=== PATIENT | female | born 1955 | race Caucasian/White ===

== ENCOUNTER 2022-03-06 12:49 | Emergency (ER) | payer MEDICARE, BC, SELFPAY ==
[2022-03-06 13:06] VITALS: BP 109/69; PULSE 97; RESP 18; TEMP 37; O2SAT 92; BMI 42.3
[2022-03-06 14:11] LABS: PCR FLU A POSITIVE PCR FLU A (Negative); PCR FLU B Negative PCR FLU B (Negative); PCR RSV Negative PCR RSV (Negative); SARS PCR* Negative SARS-CoV-2 (Negative)
--- NOTE | 2022-03-06 14:31 | CRLHL7_ITS ---
For Patients: As a result of the Cures Act, medical imaging exams and procedure reports are released immediately into your electronic medical record. You may view this report before your referring provider. If you have questions, please contact your health care provider. INDICATION: COPD/influenza TECHNIQUE: Chest 2 views. COMPARISON: None. FINDINGS: Cardiovascular and mediastinum: Heart size and vasculature are normal in caliber and appearance. Mediastinum is within normal limits. Lungs and pleural spaces: Lungs are clear. No sign of infiltrate or mass. No sign of pleural effusion. No pneumothorax. Bones and soft tissues: No significant findings. IMPRESSION: Unremarkable chest. Dictated by: Bryant Mera MD @ 03/06/2022 15:45:10 (Electronically Signed)
--- NOTE | 2022-03-06 14:36 | ED.GENADULT ---
HPI - General Adult General Date Seen: 03/06/22 Chief complaint: Cough Stated complaint: Cough, short of breath Time Seen by Provider: 03/06/22 14:11 Source: patient History of Present Illness HPI narrative: Patient is a 66-year-old woman who reports underlying COPD, not on home oxygen. She says for the past month she has been having difficulty with cough and shortness of breath, sometimes productive of initially clear and now greenish sputum. She says a month ago she had a cold and cough has been bothering her since then. Over the past couple of weeks she has maybe had even more cough and congestion, and over the past several days she has felt more fatigued and had more body aches. She is not sure if she has had a fever, she has had some chills and has felt hot and cold. She has not taken her temperature. She has not had a sore throat or headache. She wondered about possible COVID. She has been having more trouble with her COPD and was recently started on a new inhaler. She does not have a rescue inhaler at all. She is scheduled to go down to [place] for more pulmonary testing in April. She quit smoking many years ago. She has not had any chest pain, unusual leg swelling or pain. Related Data Home Medications Medication Instructions Recorded Confirmed allopurinol 100 mg tablet mg 03/06/22 fluticasone propionate 100 inhalation 03/06/22 mcg/actuation blister powder for inhalation (Flovent Diskus) lisinopril 10 mg tablet mg 03/06/22 lisinopril 20 mg tablet mg 03/06/22 metformin 500 mg tablet,extended mg PO 03/06/22 release 24 hr tolterodine 4 mg capsule,extended mg PO 03/06/22 release 24 hr venlafaxine 37.5 mg mg PO 03/06/22 capsule,extended release 24 hr Previous Rx's Medication Instructions Recorded albuterol sulfate 90 mcg/actuation 2 puff inhalation 6XD PRN 03/06/22 aerosol inhaler shortness of breath or wheezing #6.7 grams azithromycin 250 mg tablet See Rx Instructions PO .COMPLEX #6 03/06/22 tabs prednisone 20 mg tablet 20 mg PO BID #10 tabs 03/06/22 Allergies Allergy/AdvReac Type Severity Reaction Status Date / Time No Known Drug Allergies Allergy Verified 03/06/22 13:10 Exam Narrative: Exam Narrative: Vital signs as noted above. In general, an alert, well-appearing patient. Head: Normocephalic, atraumatic. Eyes: Pupils are equal reactive. Extraocular movements are full. Conjunctivae are normal. ENT: Mucous membranes are moist. Throat is normal. Neck: Supple without lymphadenopathy. Heart: Regular rate and rhythm. No murmur or rub. Lungs: Clear bilaterally, decreased particularly on the right. No increased work of breathing. Wheezes. Abdomen: Soft and nontender. No organomegaly. Extremities: Well perfused. No edema. No calf tenderness. Pulses intact. Neurologic: Patient is alert and oriented to person and place. Speech is fluent. Face is symmetric. Moves all extremities equally. Affect: Normal. Skin: Warm and dry. Well perfused. Const: Vital Signs, click to edit/add: Vital Signs - 24 hr 03/06/22 13:06 03/06/22 14:39 03/06/22 15:23 Temperature 98.6 F Pulse Rate [Right Pulse Oximeter] 97 99 88 Respiratory Rate 18 Blood Pressure [Ri ght Upper Arm] 109/69 Pulse Oximetry 92 88 90 Oxygen Delivery Me thod Room Air Room Air Room Air Documenting provider has reviewed patient's vital signs: yes Course Course Hospital Course: She had a triple swab done while she was in triage in this ultimately returned showing a positive flu test. She is afebrile here. I would like to give her a DuoNeb and see if this improves her sense of shortness of breath and oxygenation. I think a chest x-ray is reasonable to rule out a superimposed pneumonia, she has however afebrile here. It certainly seems as if she has some degree of COPD exacerbation, it is difficult to know whether she has acute influenza or whether this is just picking up on an old infection. She did have a cold a month ago, she also says over the past couple of days she feels more ill and fatigued. It does seem as if her symptoms are more likely respiratory, unlikely to be cardiac. I gave her 60 mg of prednisone. Chest x-ray by my review is normal. Final radiology report is pending. She does feel like she is somewhat better after the neb. Listening to her lungs she still has decreased breath sounds. Her O2 sats run between 90-92%. O2 sats recorded from the visit in 11 were 95-96%. I suspect she is somewhat off her baseline although not significantly so. She does not feel short of breath at this time. She looks comfortable in terms of her breathing, she is speaking full sentences. Interestingly, she says that her is supposed to be on oxygen at home, so they have oxygen at home right now. She says he does not use it so it is just sitting there. For the time being, I do not think she needs hospitalization, but I did discuss with her that I think if she worsens at all there is not a lot of room for deterioration. Therefore, if she is feeling like she is short of breath enough that she needs to be using her 's oxygen, I would like her to be re-evaluated in the ER. In the meantime, I am prescribing prednisone, azithromycin, and an albuterol inhaler to treat a COPD exacerbation. Plus or minus acute influenza infection. If she is not feeling at all improved in the next couple of days would recommend primary care follow-up. Otherwise she will follow-up in April with [facility] for further pulmonary evaluation. Vital Signs Vital signs: Initial Vital Signs Temperature 98.6 F 03/06/22 13:06 Temperature Source Temporal Artery Scan 03/06/22 13:06 Pulse Rate 97 03/06/22 13:06 Respiratory Rate 18 03/06/22 13:06 Blood Pressure 109/69 03/06/22 13:06 Blood Pressure Mean 82 03/06/22 13:06 Blood Pressure Position Sitting 03/06/22 13:06 Pulse Oximetry 92 03/06/22 13:06 Oxygen Delivery Method 03/06/22 13:06 Vital Signs Temperature 98.6 F 03/06/22 13:06 Pulse Rate 97 03/06/22 13:06 Respiratory Rate 18 03/06/22 13:06 Blood Pressure 109/69 03/06/22 13:06 Pulse Oximetry 92 03/06/22 13:06 Oxygen Delivery Method 03/06/22 13:06 Temperature 98.6 F 03/06/22 13:06 Pulse Rate 88 03/06/22 15:23 Respiratory Rate 18 03/06/22 13:06 Blood Pressure 109/69 03/06/22 13:06 Pulse Oximetry 90 03/06/22 15:23 Oxygen Delivery Method 03/06/22 15:23 Medical Decision Making Lab Data Labs: Lab Results 03/06/22 Range/Units 13:10 SARS-CoV-2 (PCR) Negative SARS-CoV-2 (Negative) Influenza Type A (PCR) POSITIVE PCR FLU A A (Negative) Influenza Type B (PCR) Negative PCR FLU B (Negative) RSV (PCR) Negative PCR RSV (Negative) Discharge Plan Discharge Clinical Impression: Influenza A virus present, COPD exacerbation Patient Disposition: Home, Self-Care Condition: Improved Instructions: Influenza (DC), COPD (Chronic Obstructive Pulmonary Disease) (DC) Additional Instructions: Medications as prescribed. If you feel you are worsening in terms of your respiratory status you should come back to the ER for additional evaluation. Your respiratory status right now is okay but not a lot of room for worsening. Follow up in clinic on Friday if you do not feel you are getting any better. Prescriptions: New albuterol sulfate 90 mcg/actuation HFA aerosol inhaler 2 puff inhalation 6XD PRN (Reason: shortness of breath or wheezing) Qty: 6.7 0RF prednisone 20 mg tablet 20 mg PO BID Qty: 10 0RF azithromycin 250 mg tablet See Rx Instructions PO .COMPLEX Qty: 6 0RF Rx Instructions: For 250 mg dose pack: take 500 mg today (day 1), then 250 mg for 4 days (days 2-5) No Action venlafaxine 37.5 mg capsule,extended release 24hr PO Label Comments: TAKE ONE CAPSULE BY MOUTH DAILY tolterodine 4 mg capsule,extended release 24hr PO Label Comments: TAKE ONE CAPSULE BY MOUTH DAILY lisinopril 20 mg tablet Label Comments: TAKE 1 TABLET BY MOUTH DAILY allopurinol 100 mg tablet Label Comments: TAKE 1 TABLET BY MOUTH DAILY Flovent Diskus 100 mcg/actuation blister with device INHALATION Label Comments: INHALE 1 PUFF BY MOUTH TWICE DAILY. RINSE MOUTH WITH WATER AFTER USE TO REDUCE AFTERTASTE AND INCIDENCE OF CANDIDIASIS. DO NOT SWALLOW. lisinopril 10 mg tablet Label Comments: TAKE 1 TABLET BY MOUTH DAILY metformin 500 mg tablet extended release 24 hr PO Label Comments: TAKE 1 TABLET BY MOUTH DAILY Stand Alone Forms: [facility] Info Instructions
[2022-03-06] MEDS: predniSONE 20 MG TABLET 60 MG PO (14:38)
[2022-03-06 14:39] VITALS: PULSE 99; O2SAT 88
[2022-03-06] MEDS: IPRAT-ALBUT 0.5-2.5 MG/3 ML NEB 1 NEB IH (14:39)
[2022-03-06 15:23] VITALS: PULSE 88; O2SAT 90
== END 2022-03-06 15:46 | disposition home or self-care (01) ==
PROVIDERS: Emergency Provider Emergency Medicine
DX: J44.1 Chronic obstructive pulmonary disease with (acute) exacerbation (principal); J09.X2 Influenza due to identified novel influenza A virus with other respiratory manifestations
CPT/HCPCS: 71046; 87502; 87634; 87635; 94640; 99284; J7512

== ENCOUNTER 2023-02-03 06:30 | Day surgery (SDC) | payer MEDICARE, BC, SELFPAY ==
[2023-02-03] VITALS (8 sets, daily range): BP systolic 106–136; BP diastolic 65–76; PULSE 78–81; RESP 16; TEMP 36.6; O2SAT 93–100; BMI 39.9
[2023-02-03] MEDS: BUPIVACAINE 0.5% 30 ML INJECTION (06:55)
[2023-02-03] MEDS: ETHYL CHLORIDE 1 APPLICATION 1 APPLIC TOPICAL (06:55)
[2023-02-03] MEDS: NEOMYCIN/BACITRACIN/POLYMYXIN B 1 APPLIC TOPICAL (07:31)
--- NOTE | 2023-02-03 07:33 | PM.ORPRC ---
Procedure Note Date of procedure: 02/03/23 Procedure: PREOPERATIVE DIAGNOSIS: 1. Right carpal tunnel syndrome POSTOPERATIVE DIAGNOSIS: 1. Right carpal tunnel syndrome PROCEDURE: 1. Right open carpal tunnel release SURGEON: Emile Damon MD. POST MANAGER: Johnny Bailey Pa-c ANESTHESIA: Local anesthetic (50:50 mixture of 1% lidocaine with epi and 0.5% marcaine plain) - 10ml total IMPLANTS: None EBL: 2 mL TOURNIQUET: None COMPLICATIONS: None evident INDICATIONS: The patient is a pleasant 67-year-old female who has experienced right hand numbess/tingling affecting the radial 3.5 digits for multiple months. It has progressively gotten worse. Nonoperative management has been tried and failed, and therefore surgery was recommended. DESCRIPTION OF PROCEDURE: Following a thorough discussion of risks, benefits, and alternatives consent was obtained and the operative extremity was marked. The patient was brought to the operating room and placed supine on the operating table. Local anesthesia induction was undertaken in preop holding. No antibiotics were administered as this was planned to be a local case only. Proper time-out was performed identifying proper patient, site, and procedure. The operative extremity was prepped and draped in the appropriate sterile fashion using ChloraPrep. An incision was made in line with the radial border of the ring finger beginning 1 cm distal to the distal wrist crease and progressing for another 2.5cm distal. Caution was taken to stay proximal to Kenny's cardinal line. Sharp incision through the skin, subcutaneous tissue, and palmar fascia was performed. The thenar musculature was bluntly elevated off the transverse carpal ligament. The ligament was directly visualized, and divided sharply with a 15 blade. This was released from its most proximal to the most distal extent. Metzenbaum scissor was also utilized to release the fascia extension proximally. We confirmed complete release of the transverse carpal ligament. Closure was performed with 4-O nylon in interrupted fashion. Soft dressings were applied, and the patient was transferred to the recovery room in stable condition. PLAN: 1. Encourage elevation of the operative extremity. 2. Range of motion of the fingers and hand/wrist as tolerated. 3. Ibuprofen/acetaminophen and/or oxycodone as needed for pain control. 4. Follow up with PA visit or nurse visit in 12-16 days for wound check and suture removal.
== END 2023-02-03 08:00 | disposition home or self-care (01) ==
PROVIDERS: PCP Family Medicine; Visit Provider Orthopaedic Surgery Sports Medicine
PROC: (CPT 64721; principal; 2023-02-03 07:30)
DX: G56.01 Carpal tunnel syndrome, right upper limb (principal)
CPT/HCPCS: 64721; J0665

== ENCOUNTER 2024-02-09 12:04 | Emergency (ER) | payer MEDICARE, BC, SELFPAY ==
[2024-02-09 12:46] VITALS: BP 97/66; PULSE 104; RESP 16; TEMP 37.3; O2SAT 93; BMI 39.2
--- NOTE | 2024-02-09 12:56 | ED_ITS ---
HPI - General Adult General Chief complaint: Nausea/Vomiting Stated complaint: Vomiting, diarrhea Time Seen by Provider: 02/09/24 12:54 History of Present Illness HPI narrative: Patient started Ozempic 2 months ago. Developed diarrhea on January 28 and February 02. Saw her MD at [facility] on the . They did Xrays and told her it was likely not viral and to just reduce her next Ozempic dose back down to 1mg. Patient is due for this today. However, went 1 week without pooping and so she took a senna last evening and has not had 12 loose stools and has vomited 8 times and cant keep anything down. her great grandson was seen this morning and was diagnosed with something viral. 68-year-old woman presenting to the emergency department with concern of frequent diarrhea and vomiting. She does have some abdominal pain that build the head of diarrhea but then improves. Thought in clinic when initially developed about 12 days ago was thought to be related to Ozempic. After decreasing dosing she went about a week without having a bowel movement and took a couple senna yesterday. She has had numerous loose stools without hematochezia and vomited number of times today. She does note that her great grandson was here in this emergency department this morning with suspected viral mild gastrointestinal illness. Apparently recommended by triage line to present to the emergency department. To little thirsty. Not any more short of breath than usual. No cough. Related Data Home Medications ?Medication ?Instructions ?Recorded ?Confirmed allopurinol 100 mg tablet 100 mg PO DAILY 03/06/22 02/09/24 lisinopril 20 mg tablet 20 mg PO DAILY 03/06/22 02/09/24 metformin 500 mg tablet,extended mg PO 03/06/22 02/18/23 release 24 hr tolterodine 4 mg capsule,extended mg PO 03/06/22 02/18/23 release 24 hr venlafaxine 37.5 mg 37.5 mg PO DAILY 03/06/22 02/09/24 capsule,extended release 24 hr aspirin 325 mg tablet 325 mg PO QDAY 09/10/22 02/09/24 atorvastatin 20 mg tablet 20 mg PO DAILY 01/10/23 02/09/24 conjugated estrogens 0.625 mg/gram 0.3125 mg vaginal DAILY 02/09/24 02/09/24 vaginal cream (Premarin) semaglutide 0.25 mg or 0.5 mg (2 mg subcut 02/09/24 mg/3 mL) subcutaneous pen injector (Ozempic) Previous Rx's ?Medication ?Instructions ?Recorded albuterol sulfate 90 mcg/actuation 2 puff inhalation 6XD PRN 03/06/22 aerosol inhaler shortness of breath or wheezing #6.7 grams Allergies Allergy/AdvReac Type Severity Reaction Status Date / Time amoxicillin (From Augmentin) AdvReac Nausea Verified 02/09/24 12:43 clavulanic acid (From AdvReac Nausea Verified 02/09/24 12:43 Augmentin) Review of Systems Status of ROS: Reports: 6 or more systems reviewed and unremarkable except as noted in History and below PFSH PFS Medical History TIA (transient ischemic attack) ?G45.9 - Transient cerebral ischemic attack, unspecified (ICD-10) Hypertension ?I10 - Essential (primary) hypertension (ICD-10) High cholesterol ?E78.00 - Pure hypercholesterolemia, unspecified (ICD-10) Diabetes ?E11.9 - Type 2 diabetes mellitus without complications (ICD-10) Surgical History History of carpal tunnel surgery of right wrist (02/03/23) ?Z98.890 - Other specified postprocedural states (ICD-10) H/O: hysterectomy ?Z90.710 - Acquired absence of both cervix and uterus (ICD-10) Social History Smoking Status: Former smoker Exam Narrative: Exam Narrative: Very pleasant. NAD. Oropharynx is little dry. Upper denture plate. Breathing easily. Heart in elevated rate and regular rhythm. Abdomen is overweight with present bowel sounds diffusely mildly tender more so perhaps in the mid abdomen. No peritoneal signs. Extremities are well perfused. Const: Vital Signs, click to edit/add: Vital Signs - 24 hr 02/09/24 12:46 Temperature 99.1 F Pulse Rate [Pulse Oximeter] 104 H Respiratory Rate 16 Blood Pressure [Ri ght Upper Arm] 97/66 Pulse Oximetry 93 Oxygen Delivery Me thod Room Air Documenting provider has reviewed patient's vital signs: yes Course Vital Signs Vital signs: Initial Vital Signs Temperature 99.1 F 02/09/24 12:46 Temperature Source Temporal Artery Scan 02/09/24 12:46 Pulse Rate 104 H 02/09/24 12:46 Pulse Rhythm Regular 02/09/24 12:46 Pulse Strength 3+ Normal 02/09/24 12:46 Respiratory Rate 16 02/09/24 12:46 Blood Pressure 97/66 02/09/24 12:46 Blood Pressure Mean 76 02/09/24 12:46 Blood Pressure Position Sitting 02/09/24 12:46 Pulse Oximetry 93 02/09/24 12:46 Oxygen Delivery Method Room Air 02/09/24 12:46 Vital Signs Temperature 99.1 F 02/09/24 12:46 Pulse Rate 104 H 02/09/24 12:46 Respiratory Rate 16 02/09/24 12:46 Blood Pressure 97/66 02/09/24 12:46 Pulse Oximetry 93 02/09/24 12:46 Oxygen Delivery Method Room Air 02/09/24 12:46 Temperature 99.1 F 02/09/24 12:46 Pulse Rate 104 H 02/09/24 12:46 Respiratory Rate 16 02/09/24 12:46 Blood Pressure 97/66 02/09/24 12:46 Pulse Oximetry 93 02/09/24 12:46 Oxygen Delivery Method Room Air 02/09/24 12:46 Medications Administered Medications: Discontinued Medications Generic Name Dose Route Start Last Admin Trade Name Freq PRN Reason Stop Dose Admin Sodium Chloride 500 mls @ 1,000 mls/hr 02/09/24 13:15 02/09/24 14:17 0.9 % Sodium Chloride 500 Ml IV 02/09/24 13:44 Infused .Q30M ONE Infusion Ondansetron HCl 4 mg 02/09/24 13:15 02/09/24 13:30 Ondansetron 2 Mg/Ml Inj IVP 02/09/24 13:16 4 mg ONCE ONE Administration Medical Decision Making MDM Narrative Medical decision making narrative: Certainly could have destabilized electrolytes at this point. Will check this. Also so IV hydration. Was tachycardic on arrival. And no underlying history of irritable bowel or inflammatory bowel disorder. Screen for COVID influenza Given normal saline IV fluids. White count is mildly elevated as is CRP. I think this is most likely representing infectious etiology. Swabs are negative. Overall improved with IV hydration and Zofran. Tolerating PO. See patient discharge plan for further discussion Medical Records Medical records reviewed: Yes I reviewed the patient's medical records Lab Data Lab results reviewed: Yes I reviewed the patient's lab results Labs: Lab Results 02/09/24 02/09/24 Range/Units 13:28 13:29 WBC 14.10 H (4.50-11.00) K/uL RBC 5.75 H (4.00-5.20) m/uL Hgb 16.8 H (12.0-16.0) gm/dL Hct 51.9 H (33.0-51.0) % MCV 90 (80-100) fL MCH 29 (26-34) pg MCHC 32 (32-36) gm/dL RDW Coeff of Richa 14.0 (11.5-15.5) % Plt Count 249 (140-440) K/uL Neut % (Auto) 88.3 H (42.0-72.0) % Lymph % (Auto) 5.6 L (20-44) % [place] % (Auto) 3.1 (0.0-11.0) % Eos % (Auto) 2.8 (0.0-7.0) % Baso % (Auto) 0.1 (0.0-3.0) % Neut # (Auto) 12.50 H (1.7-7.0) K/uL Lymph # (Auto) 0.80 L (0.90-2.90) K/uL [place] # (Auto) 0.40 (0.00-0.90) K/UL Eos # (Auto) 0.40 (0.00-0.50) K/uL Baso # (Auto) 0.00 (0.00-0.30) K/uL Abs Immat Gran (auto) 0.00 (0.00-0.30) K/uL Imm/Tot Granulo (auto) 0.1 % Sodium 139 (135-149) mmol/L Potassium 4.3 (3.6-5.1) mmol/L Chloride 101 (96-114) mmol/L Carbon Dioxide 27 (20-32) mmol/L Anion Gap 11 (7-15) mEq/L BUN 25 (7-30) mg/dL Creatinine 1.3 (0.5-1.5) mg/dL Estimated Creat Clear 39.72 Estimated GFR 45 ml/min Glucose 191 H (60-115) mg/dL Calcium 8.9 (8.4-10.6) mg/dL C-Reactive Protein 1.7 H (0.5-1.0) mg/dL SARS-CoV-2 (PCR) Negative SARS-CoV-2 (Negative) Influenza Type A (PCR) Negative PCR FLU A (Negative) Influenza Type B (PCR) Negative PCR FLU B (Negative) Discharge Plan Discharge Clinical Impression: Vomiting, Diarrhea Additional Instructions: Focus on hydration. Slow advance of diet over the next 24-36 hours. Diluted juices, soup broths, rice, crackers, toast. Could try loperamide if needed for diarrhea as long as you are not experiencing a fever or seeing blood in your stool. Zofran from [facility] for nausea if you need. Prescriptions: No Action atorvastatin 20 mg tablet 20 mg PO DAILY aspirin 325 mg tablet 325 mg PO QDAY venlafaxine 37.5 mg capsule,extended release 24hr 37.5 mg PO DAILY Patient Comments: TAKE ONE CAPSULE BY MOUTH DAILY tolterodine 4 mg capsule,extended release 24hr PO Patient Comments: TAKE ONE CAPSULE BY MOUTH DAILY lisinopril 20 mg tablet 20 mg PO DAILY Patient Comments: TAKE 1 TABLET BY MOUTH DAILY allopurinol 100 mg tablet 100 mg PO DAILY Patient Comments: TAKE 1 TABLET BY MOUTH DAILY metformin 500 mg tablet extended release 24 hr PO Patient Comments: TAKE 1 TABLET BY MOUTH DAILY albuterol sulfate 90 mcg/actuation HFA aerosol inhaler 2 puff inhalation 6XD PRN (Reason: shortness of breath or wheezing) Qty: 6.7 0RF Ozempic 0.25 mg or 0.5 mg (2 mg/3 mL) pen injector subcut Premarin 0.625 mg/gram cream 0.3125 mg vaginal DAILY Rx Instructions: off 1 week; repeat cycle Follow Up/Referrals: Rin James MD [Primary Care Provider] - Stand Alone Forms: [facility] Info Instructions
--- OUTSIDE RECORDS SUMMARY | 2024-02-09 13:29 | XMS_ITS | Clinical Summary ---
Author Organization [employer] [facility] Address [place], [place] [address] Care Team Providers Care Manager Of Regulatory Affairs Name Role Phone Rin James MD Primary Care Provider [phone] Allergies Active Allergy Reactions Criticality Noted Date Comments Amoxicillin-Pot Clavulanate 01/16/2009 House Dust Throat Swelling/Closing 08/23/2013 Throat feels like it is tightening up Medications Medication Sig Dispensed Refills Start Date End Date Status aspirin enteric coated (ECOTRIN) 325 mg tablet Take 1 tablet by mouth once daily with a meal. 0 11/07/2009 Active Calcium-Cholecalcife rol, D3, (CALCIUM 600 WITH VITAMIN D3) 600 mg(1,500mg) -400 unit Cap Take 1 capsule by mouth once daily. 0 11/07/2009 Active NebulizerIndications :COPD with chronic bronchitis (HC) Nebulizer, disposable neb kit x 4, reuseable neb kit x 1, mask x 1, filters x 1. Frequency of use: daily; Medication: Duoneb Length of need: 99 months 1 Each 03/20/2022 Active clindamycin 1% (CLEOCIN-T) 1 % lotion Apply topically to affected area(s). 10/08/2021 Active sodium chloride-sodium bicarb (Neilmed Sinus Rinse Complete) Inhale into affected nostril(s) one time if needed. 05/17/2022 Active albuterol HFA (Ventolin HFA) 90 mcg/actuation inhalerIndications:M ild intermittent asthma without complication INHALE 2 PUFFS BY MOUTH EVERY 4 HOURS NEEDED FOR WHEEZING OR SHORTNESS OF BREATH 1 Each 1 06/13/2022 Active cetirizine (ZYRTEC) 10 mg tablet Take 10 mg by mouth once daily. 01/30/2007 Active allopurinoL (ZYLOPRIM) 100 mg tabletIndications:Go uty arthritis of toe Take 1 Tablet (100 mg) by mouth once daily. 100 Tablet 3 10/13/2023 Active lisinopriL (PRINIVIL; ZESTRIL) 20 mg tabletIndications:Pr imary hypertension Take 1 Tablet (20 mg) by mouth once daily. 100 Tablet 3 10/13/2023 Active venlafaxine (EFFEXOR XR) 75 mg cp24 Extended-Release capsuleIndications:G eneralized anxiety disorder Take 1 Capsule (75 mg) by mouth once daily with a meal. 100 Capsule 3 10/13/2023 Active fluticasone (50 mcg per actuation) nasal solution (FLONASE)Indications :Allergic rhinitis due to pollen, unspecified seasonality Inhale 2 Sprays to both nostrils once daily. 16 g 3 10/13/2023 Active budesonide-formotero L (SYMBICORT) 160-4.5 mcg/actuation (160-4.5 mcg each actuation) inhalerIndications:M oderate persistent reactive airway disease without complication Inhale 2 Puffs by mouth two times daily. 10.2 g 11 10/13/2023 Active semaglutide (Ozempic) 2 mg/dose (8 mg/3 mL) penIndications:Type 2 diabetes mellitus with stage 3a chronic kidney disease, without long-term current use of insulin (HC) Inject 2 mg subcutaneous once weekly. 9 mL 3 01/05/2024 Active oxybutynin XL (DITROPAN XL) 5 mg CR tabletIndications:Mi xed stress and urge urinary incontinence Take 1-2 Tablets (5-10 mg) by mouth once daily. 200 Tablet 3 10/13/2023 Active atorvastatin (LIPITOR) 20 mg tabletIndications:Hy perlipidemia, unspecified hyperlipidemia type TAKE 1 TABLET BY MOUTH AT BEDTIME 100 Tablet 3 10/17/2023 Active Premarin 0.625 mg/gram vaginal cream INSERT 1G INTO THE VAGINA AND AROUND THE URETHRA AT BEDTIME FOR 3 WEEKS. THEN 3 TIMES A WEEK MAINTENANCE Active Active Problems Problem Noted Date Diagnosed Date Morbid obesity 10/10/2022 Generalized anxiety disorder 10/10/2022 Overview (10/10/2022): Currently taking Effexor xr 37.5. Tolerating well. MARY 7-7 Last Assessment & Plan: Continue current treatment. Reactive airway disease without complication Overview (10/10/2022): Per [facility], see note dated 08/13/22. PFTs without obstruction, mild restriction likely d/t body habitus. TIA (transient ischemic attack) 10/10/20222018 Factor V Leiden mutation 10/10/2022 Stage 3a chronic kidney disease 10/10/2022 Mixed stress and urge urinary incontinence 07/05 Overview (10/10/2022): Received E stim treatment and pelvic floor rehab. Currently taking Detrol History of abnormal cervical Papanicolaou smear 01/12/2015 Overview (10/10/2022): ASCUS 2014 subsequent colposcopy resulted in total hystectomy 2014 Last Assessment & Plan: Asymptomatic. No additional screening needed. Diabetes mellitus 07/05/2014 Gouty arthritis of toe 07/05/2014 Bunion of great toe of right foot 07/05/2014 Hidradenitis suppurativa 03/09/2013 Overview (10/10/2022): Dx in 2012. Fatty liver 08/05/2005 Overview (10/10/2022): Noted on abdominal ultrasound in 2009. ALT was normal when last assessed in 2018. Last Assessment & Plan: Will reassess liver function studies next year. Primary hypertension 09/02/2003 Overview (10/10/2022): Currently taking lisinopril 20mg Blood pressure is borderline. Last Assessment & Plan: Continue current treatment. Recommend weight reduction of 5-10% over the next year. Obstructive sleep apnea syndrome 09/02/2003 Overview (10/10/2022): Unable to tolerate CPAP Has noted more fatigue Last Assessment & Plan: Will let me know what she wants a sleep medicine appointment. We discussed Inspire as a treatment option. Resolved Problems Problem Noted Date Diagnosed Date Resolved Date COPD exacerbation 10/13/2023 10/13/2023 Mild intermittent asthma without complication 06/14/19 23 10/10/2022 Disorder of pelvis 07/05/2016 Asthma-chronic obstructive p ulmonary disease overlap syndrome 03/24/2015 10/10/2022 Overview (10/10/2022): Has rescue inhaler and uses zyrtec during allergy season Tested positive for COVID-19 in February 2021 and struggled with shortness of breath. Local provider prescribed Breo which improve symptoms. Granddaughter has a cat who has moved in. Last Assessment & Plan: Ordered fluticasone to see if it is less expensive than Breo. Encourage increasing physical activity. Gout 01/12/2015 10/10/2022 Overview (10/10/2022): Takes allopurinol. First gout flair 2014. Previously on Etodolac. She has not had a bad gout flare in many years. About 2- 3/year she feels some toe discomfort with improves overtime. Last Assessment & Plan: Continue current treatment. Elevated uric acid in blood 07/05/2014 10/10/2022 Encounters Date Type Department Care Team Description 02/09/2024 Nurse Triage [facility] [address] [place] [address] Rin James MD Vomiting; Diarrhea; Abdominal Pain 02/08/2024 Travel 02/03/2024 9:45 AM CDT Ancillary Procedure [facility] [address] [place] [address] 02/03/2024 9:10 AM CDT Office Visit [facility] [address] [place] [address] Parris Evans PA Diarrhea (Started last , cramping, bloating. Afraid to eat) 02/03/2024 Travel from Last 3 Months Immunizations Name Administration Dates Next Due COVID-19 vaccine ([employer] NTech 30mcg/0.3mL) 12YO+ BIVALENT PF, MDV 10/10/2022 COVID-19 vaccine ([employer] NTech 30mcg/0.3mL) PF, MDV 07/09/2020,06/18/2020 Influenza Virus, Unspecified 04/01/2018 Influenza, IIV3 (Age 6-35 mos) 03/09/2013 Influenza, IIV3 (Age >=3 years) 02/23/2003 Influenza, IIV4 04/01/2018, 8,03/29/2016,2014,02/07/2014 Pneumococcal Conj 20-valent (Prevnar 20) 10/10/2022 Pneumococcal Poly,23-Valent (Pneumovax) 02/23/2003 TD, UNSPECIFIED 12/01/2008,06/03/2008 Td (Age >=7 Years) 06/03/2008 Td, Preservative Free (age > = 7 Years) 12/01/2008 Tdap 03/02/2012 Zoster (Shingrix-RZV, recombinant) 10/04/2020, Family History Medical History Relation Name Comments Cancer-breast No Family History Cancer-ovarian No Family History Social History Tobacco Use Types Packs/Day Years Used Date Smoking Tobacco: Former Cigarettes 2 25 0 04/14/1976 - 04/14/2001 Smokeless Tobacco: Never Tobacco Cessation:Counseling Given: Yes Alcohol Use Standard Drinks/Week Comments Yes 0 (1 standard drink = 0.6 oz pur e alcohol) rare PHQ-2 Answer Date Recorded PHQ-2 TOTAL SCORE 3 10/13/2023 Social Connections Answer Date Recorded Do you often feel lonely or isolated from those around you? 0 05/08/2023 Financial Resource Strain Answer Date R ecorded Difficulty of Paying Living Expenses 3 05/08/2023 Difficulty of Paying Living Expenses Not on file 05/08/2023 Food Insecurity Answer Date Recorded Do you worry your food will run out before you are able to buy more? 1 05/08/2023 Transportation Needs Answer Date Record ed Does lack of transportation keep you from medica l appointments? 1 05/08/2023 Does lack of transportation keep you from work, meetings or getting things that you need? 1 05/08/2023 Housing Stability Answer Date Recorded What is your housing situation today? 1 05/08/2023 Sex and Gender Information Value Date Recorded Sex Assigned at Not on file Gender Identity Not on file Sexual Orientation Not on file Obstetrics History Last Filed Vital Signs Vital Sign Reading Time Taken Comments Blood Pressure 93/63 02/03/2024 9:14 AM CDT Pulse 80 02/03/2024 9:14 AM CDT Temperature 36.8 ??C (98.3 ??F) 06/13/2022 10:[address] Respiratory Rate - - Oxygen Saturation 95% 10/13/2023 10:23 AM CDT Inhaled Oxygen Concentration - - Weight 116.6 kg (257 lb) 02/03/2024 9:14 AM CDT Height 169.8 cm (5' 6.85) 10/13/2023 10:23 AM C DT Body Mass Index 40.43 10/13/2023 10:23 AM CDT Plan of Treatment Upcoming Encounters Date Type Department Care Team (Late st Contact Info) Description 02/13/2024 11:10 AM CDT Office Visit [facility] [address] [facility] [place] [address] Rin James MD [address] [place] [address] Health Maintenance Due Date Last Done Comments Tetanus booster 03/02/2022 03/02/2012, 11/13, 12/01/2008, Additional history exists COVID-19 vaccine series ( season) 2023 10/10/2022, 07/09/2020, 06/18/2020 Influenza for age 65+ 12/14/2023 04/01/2018 , 04/01/2018, 05/19/2017, Additional history exists BMI (ht and wt on same day) for age 18+ 10/12/2024 10/13/2023, 10/10/2022, 09/03/2022, Additional history exists Depression screening for age 12+ 10/13/2024 10/14/2023, 10/13/2023, 10/13/2023, Additional history exists Medicare Wellness for age 65+ 10/13/2024 10/13/2023, 10/10/2022 Mammogram for age 45-75 10/27/2024 10/28/2023, 10/23 Colonoscopy through age 75 02/17/202502/17 (Verified in Care Everywhere or Patient Record) Lipids for age 45-75 10/12/2028 10/13/2023, 10/11/19 Tdap Completed 03/02/2012 Hepatitis C screening for age 18-79 Addressed 08/15/2014 (Verified in Care Everywhere or Patient Record) Overridden with the intention of not completing the topic Zoster (shingles) series for age 50+ Completed 10/04/2020, 09/30/2019 Pneumococcal series for age 65+ Completed 10/10/2022, 02/23/2003 DEXA/DXA scan for age 65+ Completed 10/23/2022 Procedures Procedure Name Priority Date/Time Associated Diagnosis Comments XR ABDOMEN 2 VIEW FLAT AND UPRIGHT OR DECUBITUS Routine 02/03/2024 10:03 AM CDT Abdominal pain, generalized XR MAMMO BILAT SCREENING Routine 10/28/2023 11:45 AM CDT Encounter for screening mammogram for malignant neoplasm of breast LIPID PANEL W REFLEX MEASURED LDL Routine 10/13/2023 10:11 AM CDT Hyperlipidemia, unspecified hyperlipidemia type XR DXA BONE DENSITY 2 SITES AXIAL Routine 10/23/2022 9:50 AM CDT Postmenopausal from Last 3 Months or Most Recently Relevant to Health Maintenance Results * XR ABDOMEN 2 VIEW FLAT AND UPRIGHT OR DECUBITUS (02/03/2024 10:03 AM CDT) Anatomical Region Laterality Modality Abdomen Computed Radiogr aphy 02/03/2024 10:1 6 AM CDT Narrative 02/03/2024 10:16 AM CDT For Patients: ??As a result of the Cures Act, medical imaging exams and procedure reports are released immediately into your electronic medical record. ??You may view this report before your referring provider. ??If you have questions, please contact your health care provider. Indication: Abdominal pain, generalized Technique: Upright and supine views of the abdomen and pelvis, 5 images Comparison: None Findings/Impression: No evidence of bowel obstruction. No free air. No significant stool burden. No calcifications projected over the expected position of the kidneys, ureters, or bladder to suggest the presence of stones. The visualized lower thorax is unremarkable. The osseous structures are without acute abnormality. Degenerative changes of the lower lumbar spine. Likely benign bone island in the left iliac bone. Vascular calcifications. Dictated by Edison Batista MD @ 02/03/2024 10:16:37 AM (Electronically Signed) Procedure Note Edison Batista MD - 02/03/2024 For Patients: As a result of the s Act, medical imagingexams and procedure reports are released immediately into your electronicmedical record. You may view this report before your referring provider.If you have questions, please contact your health care provider. Indication: Abdominal pain, generalized Technique: Upright and supine views of the abdomen and pelvis, 5 images Comparison: None Findings/Impression: No evidence of bowel obstruction. No free air. No significant stoolburden. No calcifications projected over the expected position of the kidneys,ureters, or bladder to suggest the presence of stones. The visualized lower thorax is unremarkable. The osseous structures are without acute abnormality. Degenerative changesof the lower lumbar spine. Likely benign bone island in the left iliacbone. Vascular calcifications. Dictated by Edison Batista MD @ 02/03/2024 10:16:37 AM (Electronically Signed) [facility] * XR MAMMO BILAT SCREENING (10/28/2023 11:45 AM CDT) Anatomical Region Laterality Modality BREASTS, Breast Left, Breast Right Bilateral Mammography Impressions 10/28/2023 1:02 PM CDT ??There is no radiographic evidence for malignancy. ??Recommend annual mammograms. MAMMOGRAM ASSESSMENT: ??ACR 1 Negative PATIENTS: You will also receive a letter with your examination results in an easy to read format. ??If you have questions about your results, please contact your referring provider. Narrative 10/28/2023 1:02 PM CDT For Patients: As a result of the Cures Act, medical imaging exams and procedure reports are released immediately into your electronic medical record. You may view this report before your referring provider. If you have questions, please contact your health care provider. XR MAMMO BILAT SCREENING [[id number]] CLINICAL HISTORY: ??This is an asymptomatic 67 y.o. patient. INDICATION FOR EXAM: Mammogram Screening. TECHNIQUE: CC & MLO views were obtained. ??This study was evaluated with the assistance of Computer-Aided Detection. COMPARISON FILM: Yes 10/23/22 [facility] 10/08/21 [facility] FINDINGS: ??The breasts are almost entirely fatty. There are no dominant masses, suspicious micro calcifications or areas of architectural distortion. Rin James MD MAMMO * LIPID PANEL W REFLEX MEASURED LDL (10/13/2023 10:11 AM CDT) CHOLESTEROL,TOTAL 131 100 - 199 mg/dL 10/13/2023 6:30 PM CDT [facility] Comment: Cholesterol, Total Reference Ranges Desirable <200 mg/dL Borderline 200-239 mg/dL High >=240 mg/dL TRIGLYCERIDES 103 <150 mg/dL 10/13/2023 6:30 PM CDT [facility] HDL CHOLESTEROL 59 >40 mg/dL 6:30 PM CDT [facility] NON-HDL CHOLESTEROL 72 <145 mg/dl 10/13/2023 6:30 PM CDT [facility] CHOL/HDL RATIO 2.22 <4.50 10/13/2023 6:30 PM CDT [facility] LDL CHOLESTEROL 51 <=130 mg/dL 10/13/2023 6:30 PM CDT [facility] VLDL CHOLESTEROL 21 <=30 mg/dL 10/13/2023 6:30 PM CDT [facility] PROVIDER ORDERED STATUS RANDOM 10/13/2023 6:30 PM CDT [facility] Blood BLOOD SPECIMEN / Unknown Venipuncture / Unknown 10/13/2023 10:11 AM CDT 10/13/2023 10:11 AM CDT Rin James MD [facility] [address] [place] [id number], * XR DXA BONE DENSITY 2 SITES AXIAL [[id number]] (10/23/2022 9:50 AM CDT) Anatomical Region Laterality Modality Spine, HIPS, HIPL, HIPR Other Impressions 10/29/2022 2:12 PM CDT Normal bone density. RECOMMENDATIONS: The National Osteoporosis Foundation recommends pharmacologic treatment for patients with T-scores of -2.5 or less, patients with prior history of fragility fractures, or patients with 10-year probability of greater than 3% at hips or greater than 20% of suffering major osteoporotic fractures. Recommend continued optimization of calcium and vitamin D intake through dietary means and/or supplementation and regular exercise. Repeat scan recommended in 3-5 years. Parris Evans PA-C [facility] 10/29/2022 ?? Narrative 10/29/2022 2:12 PM CDT For Patients: Results are automatically released to your [employer] ([employer]) account once available, in compliance with federal regulations. This means that you may see your results before your provider has had a chance to review them. Please allow 2-3 business days for your provider to comment on the results. XR DXA Bone Mineral Density (BMD) EXAM LOCATION: [facility] [address] [facility] [address] PATIENT NAME: Mel Grover DATE OF : 1955 EXAM DATE: 10/23/2022 REQUESTING PROVIDER: Rin James MD GENDER AT : female HEIGHT: 5' 6.85 (10/10/2022) WEIGHT: ??259 lb 3.2 oz (10/10/2022) MENOPAUSAL STATUS: Postmenopausal RACE/ETHNICITY: White RISK FACTORS: Diabetes Type 1, Family History of Hip Fracture (parental), Height Loss (2 inches or more), Smoking (prior), and White Race CURRENT MEDICATION FOR BONE LOSS: NONE INDICATION: Post-Menopause COMPARISON DATE(S): None DXA scans are compared to prior studies for a patient only when the two (or more) studies were performed on the same scanner. It is not possible to compare data generated on one scanner to data from another because there are not standards in DXA equipment. This applies even if the two scanners are made by the same manager water wastewater. PROCEDURE: Dual-energy x-ray absorptiometry performed with routine technique. Reporting is completed in the form of a T-score. The T-score represents the standard deviation from peak bone mass based on young healthy adult. A Z-score is used for diagnosis in premenopausal women, and for men under the age of 50. FINDINGS: RESULT LUMBAR SPINE L1 - L4 BMD: 1.425 g/cm2 T-Score: + 1.9 Z-Score: + 2.3 Change from prior: ??None RESULTS FEMUR Left femoral neck BMD: 1.130 g/cm2 T-Score: + 0.7 Z-Score: + 1.5 Change from prior: ??None Right femoral neck BMD: 0.967 g/cm2 T-Score: - 0.5 Z-Score: + 0.3 Change from prior: ??None Left hip BMD: 1.184 g/cm2 T-Score: + 1.4 Z-Score: + 1.9 Change from prior: ??None Right hip BMD: 1.108 g/cm2 T-Score: + 0.8 Z-Score: + 1.3 Change from prior: ??None WHO criteria: Normal: T-score at or above -1 SD Osteopenia: T-score between -1.1 and -2.4 SD Osteoporosis: T-score at or below -2.5 SD Rin James MD DEXA from Last 3 Months or Most Recently Relevant to Health Maintenance Care Teams Manager Of Regulatory Affairs Relationship Specialty Start Date End Date Rin James MD [address] [place] [address] PCP - General Family Practice 08/20/22
[2024-02-09] MEDS: ONDANSETRON 2 MG/ML inj 4 MG IVP (13:30)
[2024-02-09] MEDS: 0.9 % SODIUM CHLORIDE 500 ML 500 ML 1000 ML IV (13:31)
[2024-02-09 13:42] LABS: Basophils Percent Auto 0.1 % (0.0-3.0); Eosinophils Percent Auto 2.8 % (0.0-7.0); Hematocrit 51.9 % (33.0-51.0); Hemoglobin* 16.8 gm/dL (12.0-16.0); Immature Granulocytes Pct Auto 0.1 %; Lymphocytes Percent Auto 5.6 % (20-44); Mean Corpuscular HGB Conc 32 gm/dL (32-36); Mean Corpuscular Hemoglobin 29 pg (26-34); Mean Corpuscular Volume 90 fL (80-100); Monocytes Percent Auto 3.1 % (0.0-11.0); Neutrophils Percent Auto 88.3 % (42.0-72.0); Platelet Count* 249 K/uL (140-440); Red Blood Count 5.75 m/uL (4.00-5.20)
[2024-02-09 13:45] LABS: Slide Review Reflex No
[2024-02-09 14:10] LABS: Chloride* 101 mmol/L (96-114); Potassium* 4.3 mmol/L (3.6-5.1); Sodium* 139 mmol/L (135-149)
[2024-02-09 14:13] LABS: Creatinine* 1.3 mg/dL (0.5-1.5); Est. Creatinine Clearance* 39.72; Estimated Glomerular Filt Rate 45 ml/min
[2024-02-09 14:14] LABS: Anion Gap 11 mEq/L (7-15); Blood Urea Nitrogen* 25 mg/dL (7-30); Calcium* 8.9 mg/dL (8.4-10.6); Carbon Dioxide* 27 mmol/L (20-32); Glucose* 191 mg/dL (60-115)
[2024-02-09 14:16] LABS: C Reactive Protein* 1.7 mg/dL (0.5-1.0)
[2024-02-09 14:19] LABS: PCR FLU A Negative PCR FLU A (Negative); PCR FLU B Negative PCR FLU B (Negative); SARS PCR* Negative SARS-CoV-2 (Negative)
== END 2024-02-09 15:04 | disposition home or self-care (01) ==
PROVIDERS: Emergency Provider Family Medicine; PCP Family Medicine
DX: R11.10 Vomiting, unspecified (principal); R19.7 Diarrhea, unspecified
CPT/HCPCS: 36415; 80048; 85025; 86140; 87631; 96374; 99284; J2405; J7030